=== PATIENT | female | born 1930 | race African-American/Black ===

== ENCOUNTER 2018-09-25 13:06 | Outpatient (CLI) | payer MEDICARE, MEDICAID ==
[2018-09-25] MEDS ORDERED: SIMVASTATIN5 MG ORAL (16:17)
[2018-09-25] MEDS ORDERED: ENALAPRIL MALE2.5 MG ORAL (16:17)
[2018-09-25] MEDS ORDERED: ASPIRIN EC81 MG ORAL (16:17)
[2018-09-25 16:18] VITALS: BP_SYST 119; BP_SYST 164; BP_DIAS 79; BP_DIAS 83
--- NOTE | 2018-09-25 18:30 | Consultation ---
DATE OF CONSULTATION: 09/25/2018 GASTROENTEROLOGY CONSULTATION CHIEF COMPLAINT: Abdominal pain. HISTORY OF PRESENT ILLNESS: This is a very pleasant 88-year-old female with past medical history of ulcerative colitis diagnosed about 8 years ago. She was referred from Dr. Pollard's office for evaluation of the left lower quadrant abdominal pain. According to her, the last colonoscopy was about 3 years ago. Denies any active bleeding. Denies any diarrhea or constipation. She had a CT scan that showed evidence of diverticulosis without any obvious diverticulitis. She has some on and off chills, but no obvious persistent fevers or chills. No significant weight loss. PAST MEDICAL HISTORY: 1. History of ulcerative colitis. 2. Asthma. 3. COPD. 4. Coronary artery disease. 5. History of blood transfusion. 6. Anemia. 7. Hypertension. 8. Diverticulosis. 9. Former smoker. 10. Hepatic cysts. 11. Aortic aneurysm. MEDICATIONS: Please see medication reconciliation list. ALLERGIES: Albuterol, Dilaudid, codeine, Flagyl, methylprednisolone, and penicillin. SOCIAL HISTORY: The patient has a remote history of tobacco. No recent tobacco, alcohol, or drug abuse. REVIEW OF SYSTEMS: A 10-point review of systems was performed and pertinent positives in HPI. PHYSICAL EXAMINATION: VITAL SIGNS: Temperature 98.1, blood pressure is 160/89, pulse 74, and respirations 20. HEENT: Normocephalic and atraumatic. Sclerae anicteric. NECK: Supple. There is no evidence of lymphadenopathy. CARDIOVASCULAR: Regular rate and rhythm. Plus S1 and S2. No obvious murmur. LUNGS: Clear to auscultation bilaterally. ABDOMEN: Soft. Bowel sounds are present. There is minimal tenderness to palpation in the left lower quadrant. No rebound. No guarding. No peritoneal sign. EXTREMITIES: No cyanosis, no clubbing, no edema. ASSESSMENT AND PLAN: The patient is an 88-year-old female with history of ulcerative colitis and history of diverticulosis, now with left lower quadrant abdominal pain of unknown etiology. CT showed diverticulosis, but no obvious diverticulitis. No active sign and symptoms of flare. The patient is currently on mesalamine daily. The patient will need a colonoscopy and possibly endoscopy for history of chronic GERD and anemia. The patient was given instruction for the colonoscopy and endoscopy and was told to call back for appointment. She does not want to make an appointment today because she needs to check her schedule. When she calls back, we will schedule her for endoscopy and colonoscopy. I want to thank, Dr. Esthela Pollard, for this kind referral. Milind Vicente M.D. DR: LUCRECIA JOB#: [id number] CC: Esthela Pollard M.D.; Fax#: [phone]
[2018-09-26] MEDS ORDERED: VITAMIN D250000 UNI1 ORAL (10:08)
[2018-09-26] MEDS ORDERED: AZELASTINE205.5 MCG/ NS (10:08)
[2018-09-26] MEDS ORDERED: MESALAMINE 800 MG PO (10:08)
== END 2018-09-25 16:19 | disposition home or self-care (01) ==
LOC: PAN 13:06
DX: R10.9 Unspecified abdominal pain (principal); K57.90 Diverticulosis of intestine, part unspecified, without perforation or abscess without bleeding; Z79.899 Other long term (current) drug therapy; K21.9 Gastro-esophageal reflux disease without esophagitis; K64.9 Unspecified hemorrhoids; F17.210 Nicotine dependence, cigarettes, uncomplicated; I11.9 Hypertensive heart disease without heart failure; I25.10 Atherosclerotic heart disease of native coronary artery without angina pectoris; I10 Essential (primary) hypertension; J44.9 Chronic obstructive pulmonary disease, unspecified; Z88.0 Allergy status to penicillin; Z88.6 Allergy status to analgesic agent; Z88.8 Allergy status to other drugs, medicaments and biological substances
CPT/HCPCS: 99202